=== PATIENT | female | born 1975 | race Caucasian/White ===

== ENCOUNTER 2016-12-31 09:02 | Inpatient (IN) | payer OTHER ==
[2016-12-31 09:52] LABS: BASO % 0.1 % (0.0-2.0); HEMATOCRIT 39.1 % (34.0-47.0); LYMPH # 1.2 K/uL (1.0-4.3); LYMPH % 8.6 % (20.0-40.0); MEAN CELL VOLUME 79.1 fL (81.0-99.0); MEAN CORPUSCULAR HEMOGLOBIN 25.2 pg (27.0-31.0); MEAN CORPUSCULAR HGB CONC 31.8 g/dL (33.0-37.0); MEAN PLATELET VOLUME 8.7 fL (7.2-11.7); MONO # 0.5 K/uL (0.0-0.8); MONO % 3.5 % (0.0-10.0); PLATELET COUNT 247 K/uL (130-400); RED CELL DISTRIBUTION WIDTH 15.2 % (11.5-14.5); WHITE BLOOD COUNT 14.1 K/uL (4.8-10.8)
[2016-12-31 09:56] LABS: ALB/GLOB RATIO 1.3 (1.0-2.1); ALKALINE PHOSPHATASE 70 U/L (38-126); ALT/SGPT 21 U/L (9-52); AST/SGOT 18 U/L (14-36); BILIRUBIN,TOTAL 0.6 mg/dL (0.2-1.3); BLOOD UREA NITROGEN 13 mg/dL (7-17); CALCIUM 8.6 mg/dl (8.6-10.4); CARBON DIOXIDE 24 mmol/L (22-30); CHLORIDE 104 mmol/L (98-107); GFR AFRICAN-AMERICAN > 60; GLUCOSE,RANDOM 121 mg/dL (65-105); POTASSIUM 3.5 mmol/L (3.6-5.2); SODIUM 137 mmol/L (132-148); TOTAL PROTEIN 7.6 g/dL (6.3-8.3)
[2016-12-31] MEDS ORDERED: Iohexol 240 (50 ml) PO STA (10:14)
[2016-12-31] MEDS ORDERED: Sodium Chloride 0.9% 1,000 ML IV ONE (10:15)
[2016-12-31] MEDS ORDERED: Sodium Chloride 0.9% 1,000 ML ONE (10:22)
[2016-12-31 10:38] LABS: NEUTROPHIL 83 % (50-75); REACTIVE LYMPHOCYTES 3 % (0-0); TOTAL CELLS COUNTED 100
[2016-12-31] MEDS ORDERED: Iohexol 300 100 ML IJ ONE (10:44)
--- NOTE | 2016-12-31 11:09 | C.PDOC ---
History Of Present Illness 41-year-old female, presents to the emergency department with complaints of left sided abdominal pain, that started yesterday. Pain is associated with nausea. Patient states pain radiates to back. Denies any vomiting, fevers, chills, chest pain, shortness of breath, symptoms, change in bowel habits, or any other associated symptoms. No other complaints at this time. Time Seen by Provider: 12/31/16 09:25 Chief Complaint (Nursing): Abdominal Pain History Per: Patient, Family History/Exam Limitations: no limitations Onset/Duration Of Symptoms: Days Current Symptoms Are (Timing): Still Present Severity: Moderate Past Medical History Reviewed: Historical Data, Nursing Documentation, Vital Signs Vital Signs: Last Vital Signs Temp 98.2 F 12/31/16 09:05 Pulse 82 12/31/16 09:05 Resp 16 12/31/16 09:05 BP 116/74 12/31/16 09:05 Pulse Ox 97 12/31/16 09:05 Family History: States: No Known Family Hx - Social History Hx Alcohol Use: No Hx Substance Use: No Review Of Systems Except As Marked, All Systems Reviewed And Found Negative. Constitutional: Negative for: Fever Cardiovascular: Negative for: Chest Pain, Palpitations Gastrointestinal: Positive for: Nausea, Abdominal Pain. Negative for: Vomiting Genitourinary: Negative for: Dysuria, Frequency, Vaginal Discharge, Vaginal Bleeding Musculoskeletal: Negative for: Back Pain Physical Exam - Physical Exam Appears: Non-toxic, No Acute Distress Skin: Warm, Dry, No Rash Nose: Normal Oral Mucosa: Moist Lips: Normal Appearing Neck: Normal ROM Cardiovascular: Rhythm Regular, No Murmur Respiratory: Normal Breath Sounds, No Accessory Muscle Use Gastrointestinal/Abdominal: Soft, Tenderness (Mild to moderate inconsistent tenderness to right and left lower quadrants), No Guarding, No Rebound Extremity: Normal ROM Neurological/Psych: Oriented x3, Normal Speech ED Course And Treatment - Laboratory Results Result Diagrams: 12/31/16 09:36 12/31/16 09:36 O2 Sat by Pulse Oximetry: 97 Medical Decision Making Medical Decision Making: Plan: * CT Abd/Pel * Labs * IVFs, Morphine, Zofran, Toradol * UA * Reassess and Disposition Disposition - Disposition - Scribe Statement The provider has reviewed the documentation as recorded by the Scribe (Lupe Mayen) All medical record entries made by the Scribe were at my direction and personally dictated by me. I have reviewed the chart and agree that the record accurately reflects my personal performance of the history, physical exam, medical decision making, and the department course for this patient. I have also personally directed, reviewed, and agree with the discharge instructions and disposition.
[2016-12-31] MEDS ORDERED: Iohexol 240 (50 ml) ONE (11:14)
[2016-12-31 11:15] LABS: RBC URINE < 1 /hpf (0-3); URINE BILIRUBIN NEGATIVE (NEGATIVE); URINE BLOOD NEGATIVE (NEGATIVE); URINE COLOR Yellow (YELLOW); URINE GLUCOSE (UA) NORMAL (Normal); URINE KETONE TRACE mg/dL (NEGATIVE); URINE LEUKOCYTE ESTERASE NEG Leu/uL (Negative); URINE PROTEIN NEGATIVE (NEGATIVE); URINE UROBILINOGEN NORMAL mg/dL (0.2-1.0); WBC URINE < 1 /hpf (0-5)
[2016-12-31] MEDS ORDERED: Morphine 4 MG/ML VIAL ONE (11:15)
--- NOTE | 2016-12-31 11:19 | C.PDOC ---
History Of Present Illness 41-year-old female, presents to the emergency department with complaints of right sided abdominal pain, that started yesterday. Pain is associated with nausea. Patient states pain radiates to back. Denies any vomiting, fevers, chills, chest pain, shortness of breath, symptoms, change in bowel habits, or any other associated symptoms. No other complaints at this time. Time Seen by Provider: 12/31/16 09:25 Chief Complaint (Nursing): Abdominal Pain History Per: Patient History/Exam Limitations: no limitations Onset/Duration Of Symptoms: Hrs Past Medical History Reviewed: Historical Data, Nursing Documentation, Vital Signs Vital Signs: Last Vital Signs Temp 97.9 F 12/31/16 16:17 Pulse 78 12/31/16 16:17 Resp 18 12/31/16 16:17 BP 110/78 12/31/16 16:17 Pulse Ox 97 12/31/16 16:18 Family History: States: No Known Family Hx - Social History Hx Alcohol Use: No Hx Substance Use: No Review Of Systems Except As Marked, All Systems Reviewed And Found Negative. Constitutional: Negative for: Fever, Chills Cardiovascular: Negative for: Chest Pain Respiratory: Negative for: Shortness of Breath Gastrointestinal: Positive for: Nausea, Abdominal Pain. Negative for: Vomiting Musculoskeletal: Negative for: Back Pain Neurological: Negative for: Weakness, Numbness, Headache, Dizziness Physical Exam - Physical Exam Appears: Non-toxic, No Acute Distress Skin: Warm, Dry, No Rash Head: Atraumatic, Normacephalic Eye(s): bilateral: Normal Inspection, PERRL Nose: Normal Oral Mucosa: Moist Lips: Normal Appearing Neck: Normal ROM Chest: Symmetrical Cardiovascular: Rhythm Regular, No Murmur Respiratory: Normal Breath Sounds, No Accessory Muscle Use Gastrointestinal/Abdominal: Soft, Tenderness (Mild to moderate inconsistent tenderness to right and left lower quadrants), No Guarding, No Rebound Extremity: Normal ROM Neurological/Psych: Oriented x3, Normal Speech ED Course And Treatment - Laboratory Results Result Diagrams: 12/31/16 09:36 12/31/16 09:36 O2 Sat by Pulse Oximetry: 97 - CT Scan/US CT Abd/Pel Other Rad Studies (CT/US): Read By Radiologist, Radiology Report Reviewed CT/US Interpretation: Accession No. : [id number]. Patient Name / ID : ANTONINO [id number]. Exam Date : 12/31/2016 13:13:05 ( Approved ). Study Comment : Sex / Age : F / 41Y. Creator : Manpreet Gloria MD. Dictator : Registry Np : Supervisor Title : Manpreet Gloria MD. Approver2 : Report Date : 12/31/2016 14:40:46. My Comment : . PROCEDURE: CT abdomen and pelvis dated 12/31/16. HISTORY: Right lower quadrant abdominal pain. COMPARISON: No prior study available comparison. TECHNIQUE: Contiguous axial images of the abdomen and pelvis performed following oral and intravenous injection of approximately 100 cc Omnipaque 300 contrast. Coronal and Sagittal reformats generated. Radiation dose: Total exam DLP = 510.84 mGy-cm. This CT exam was performed using one or more of the following dose reduction techniques : Automated exposure control, adjustment of the mA and/or kV according to patient size, and/or use of iterative reconstruction technique. FINDINGS: LOWER THORAX: Mild passive/dependent atelectasis both lung bases. . Minor chronic scarring changes within the middle lobe and lingular regions also felt be present. No evidence of effusion or basilar pneumothorax. . LIVER: Liver is upper limits of normal measuring approximately 18 cm in CC dimension. There is a large (approximately 7.16cm cc x 6.0cm ap x 3.4 cm t elliptical shaped area of low attenuation within the posterior inferior margin of right lobe of liver with peripheral areas of enhancement on most likely representing a hemangioma. Follow-up triple phase CT scan of the liver could be performed to confirm. . Mild diffuse fatty hepatic infiltration. Portal and splenic veins are opacified. GALLBLADDER AND BILE DUCTS: The gallbladder is physiologically distended. No evidence of intraluminal gallbladder calculi. Previous. PANCREAS : Unremarkable. No mass. No ductal dilatation. SPLEEN: Unremarkable. No splenomegaly. ADRENALS: Unremarkable. KIDNEYS AND URETERS: Unremarkable. No stone or hydronephrosis. BLADDER: Urinary bladder is markedly distended. No evidence of intraluminal urinary bladder calculi. REPRODUCTIVE: There may be a few tiny cervical nabothian cysts. Probable septated left adnexal cyst measuring approximately 2.4 x 1.8 cm. . . There appears to be several small follicular cysts right ovary. . Few tiny cervical nabothian cysts not excluded. APPENDIX: The appendix is dilated at and exhibits thick-walled appearance with surrounding infiltration of. Findings are consistent with acute appendicitis. BOWEL: Evaluation of the bowel is somewhat limited due to incomplete opacification. The stomach is incompletely distended which presumably accounts for slight thick-walled appearance. . Visualized loops of small bowel exhibit normal contour and caliber. No evidence acute mechanical bowel obstruction high doses. PERITONEUM: Unremarkable. No fluid collection. No free air. Small fat containing umbilical hernia. LYMPH NODES: Unremarkable. No enlarged lymph nodes. VASCULATURE: Unremarkable. No aortic aneurysm. BONES: No fracture or destructive lesion. OTHER FINDINGS: None. IMPRESSION: Findings consistent with acute appendicitis. Probable large hemangioma inferolateral and posterior aspect right lobe liver. Followup nonemergent triple phase CT scan of the liver could be performed confirm. Mild fatty hepatic infiltration. Apparent septated left adnexal cyst. Questionable few small cervical nabothian cysts. Findings discussed with emergency room JENNIFER Hendrix at approximately 2:30 p.m. with written down and read back verification. Medical Decision Making Medical Decision Making: Plan: * CT Abd/Pel * Labs * IVFs, Morphine, Zofran, Toradol * UA * Reassess and Disposition The case was discussed with Dr. Butcher who agrees to admit the patient. Patient placed NPO Disposition - Disposition Disposition: HOSPITALIZED Disposition Time: 15:00 Condition: STABLE - Clinical Impression Clinical Impression: Acute appendicitis - Scribe Statement The provider has reviewed the documentation as recorded by the Scribe (Lupe Mayen) All medical record entries made by the Scribe were at my direction and personally dictated by me. I have reviewed the chart and agree that the record accurately reflects my personal performance of the history, physical exam, medical decision making, and the department course for this patient. I have also personally directed, reviewed, and agree with the discharge instructions and disposition.
--- NOTE | 2016-12-31 14:42 | CT ---
PROCEDURE: CT abdomen and pelvis dated 12/31/16 HISTORY: Right lower quadrant abdominal pain. COMPARISON: No prior study available comparison TECHNIQUE: Contiguous axial images of the abdomen and pelvis performed following oral and intravenous injection of approximately 100 cc Omnipaque 300 contrast. Coronal and Sagittal reformats generated. Radiation dose: Total exam DLP = 510.84 mGy-cm. This CT exam was performed using one or more of the following dose reduction techniques: Automated exposure control, adjustment of the mA and/or kV according to patient size, and/or use of iterative reconstruction technique. FINDINGS: LOWER THORAX: Mild passive/dependent atelectasis both lung bases. . Minor chronic scarring changes within the middle lobe and lingular regions also felt be present. No evidence of effusion or basilar pneumothorax. . LIVER: Liver is upper limits of normal measuring approximately 18 cm in CC dimension. There is a large (approximately 7.16cm cc x 6.0cm ap x 3.4 cm t elliptical shaped area of low attenuation within the posterior inferior margin of right lobe of liver with peripheral areas of enhancement on most likely representing a hemangioma. Follow-up triple phase CT scan of the liver could be performed to confirm. . Mild diffuse fatty hepatic infiltration. Portal and splenic veins are opacified. GALLBLADDER AND BILE DUCTS: The gallbladder is physiologically distended. No evidence of intraluminal gallbladder calculi. Previous PANCREAS: Unremarkable. No mass. No ductal dilatation. SPLEEN: Unremarkable. No splenomegaly. ADRENALS: Unremarkable. KIDNEYS AND URETERS: Unremarkable. No stone or hydronephrosis. BLADDER: Urinary bladder is markedly distended. No evidence of intraluminal urinary bladder calculi. REPRODUCTIVE: There may be a few tiny cervical nabothian cysts. Probable septated left adnexal cyst measuring approximately 2.4 x 1.8 cm. . . There appears to be several small follicular cysts right ovary. . Few tiny cervical nabothian cysts not excluded. APPENDIX: The appendix is dilated at and exhibits thick-walled appearance with surrounding infiltration of. Findings are consistent with acute appendicitis. BOWEL: Evaluation of the bowel is somewhat limited due to incomplete opacification. The stomach is incompletely distended which presumably accounts for slight thick-walled appearance. . Visualized loops of small bowel exhibit normal contour and caliber. No evidence acute mechanical bowel obstruction high doses PERITONEUM: Unremarkable. No fluid collection. No free air. Small fat containing umbilical hernia. LYMPH NODES: Unremarkable. No enlarged lymph nodes. VASCULATURE: Unremarkable. No aortic aneurysm. BONES: No fracture or destructive lesion. OTHER FINDINGS: None. IMPRESSION: Findings consistent with acute appendicitis. Probable large hemangioma inferolateral and posterior aspect right lobe liver. Followup nonemergent triple phase CT scan of the liver could be performed confirm. Mild fatty hepatic infiltration. Apparent septated left adnexal cyst. Questionable few small cervical nabothian cysts. Findings discussed with emergency room JENNIFER Hendrix at approximately 2:30 p.m. with written down and read back verification.
--- NOTE | 2016-12-31 16:38 | CP.PCM.HP ---
History of Present Illness - History of Present Illness History of Present Illness: H&P Surgery- Dr. Butcher 41F w/ no relevant pmhx presented to the ED w/ sharp non-radiating RLQ pain that started yesterday. Pt had associated non-bloody, non-bilious vomiting x3. pain has progressively gotten worse. No previous episodes similar to this. Currently denies fevers, chills, chest pain, shortness of breath, diarrhea, change iin vision, numbness and tingling in extremities FDLMP: 12/24/16 PMH: none PSH: x2 ALL: NKDA Socialhx: denies etoh, tobacco, recreational drug use Present on Admission - Present on Admission Any Indicators Present on Admission: No Review of Systems - Review of Systems All systems: reviewed and no additional remarkable complaints except - Constitutional Constitutional: As Per HPI Past Patient History - Past Social History Smoking Status: Never Smoked - PSYCHIATRIC Hx Substance Use: No - SURGICAL HISTORY Hx Section: Yes Meds Allergies/Adverse Reactions: Allergies Allergy/AdvReac Type Severity Reaction Status Date / Time No Known Allergies Allergy Unverified 12/31/16 09:05 Physical Exam - Constitutional Appears: Non-toxic, No Acute Distress - Head Exam Head Exam: ATRAUMATIC - Eye Exam Eye Exam: EOMI. absent: Scleral icterus - ENT Exam ENT Exam: Mucous Membranes Moist - Respiratory Exam Respiratory Exam: NORMAL BREATHING PATTERN. absent: Accessory Muscle Use, Respiratory Distress - Cardiovascular Exam Cardiovascular Exam: +S1, +S2. absent: Bradycardia, Tachycardia - GI/Abdominal Exam GI & Abdominal Exam: Guarding, Tenderness. absent: Distended, Firm, Rigid, Soft Additional comments: tenderness in RLQ, - rovsings, voluntary guarding - Extremities Exam Extremities exam: Positive for: normal inspection. Negative for: calf tenderness - Back Exam Back exam: absent: CVA tenderness (L), CVA tenderness (R) - Neurological Exam Neurological exam: Alert, Oriented x3 - Psychiatric Exam Psychiatric exam: Normal Affect - Skin Skin Exam: Dry, Intact Results - Vital Signs Recent Vital Signs: Last Vital Signs Temp 97.9 F 12/31/16 16:17 Pulse 78 12/31/16 16:17 Resp 18 12/31/16 16:17 BP 110/78 12/31/16 16:17 Pulse Ox 97 12/31/16 16:30 - Labs Result Diagrams: 12/31/16 09:36 12/31/16 09:36 Labs: Laboratory Results - last 24 hr 12/31/16 12/31/16 12/31/16 09:36 09:36 10:59 WBC 14.1 H RBC 4.94 Hgb 12.4 Hct 39.1 MCV 79.1 L MCH 25.2 L MCHC 31.8 L RDW 15.2 H Plt Count 247 MPV 8.7 Neut % (Auto) 87.8 H Lymph % (Auto) 8.6 L Hettinger % (Auto) 3.5 Eos % (Auto) 0.0 Baso % (Auto) 0.1 Neut # 12.3 H Lymph # 1.2 [place] # 0.5 Eos # 0.0 Baso # 0.0 Neutrophils % (Manual) 83 H Lymphocytes % (Manual) 8 L Reactive Lymphs % 3 H Monocytes % (Manual) 6 Platelet Estimate Normal Poikilocytosis (manual Slight Anisocytosis (manual) Slight Ovalocytes Slight Sodium 137 Potassium 3.5 L Chloride 104 Carbon Dioxide 24 Anion Gap 13 BUN 13 Creatinine 0.6 L Est GFR ( Amer) > 60 Est GFR (Non-Af Amer) > 60 Random Glucose 121 H Calcium 8.6 Total Bilirubin 0.6 AST 18 ALT 21 Alkaline Phosphatase 70 Total Protein 7.6 Albumin 4.4 Globulin 3.2 Albumin/Globulin Ratio 1.3 Lipase 109 Urine Color Yellow Urine Clarity Clear Urine pH 7.0 Ur Specific [place] 1.024 Urine Protein Negative Urine Glucose (UA) Normal Urine Ketones Trace Urine Blood Negative Urine Nitrate Negative Urine Bilirubin Negative Urine Urobilinogen Normal Ur Leukocyte Esterase Neg Urine WBC (Auto) < 1 Urine RBC (Auto) < 1 Ur Squamous Epith Cells 1 Urine HCG, Qual Negative Assessment & Plan - Assessment and Plan (Free Text) Assessment: 41F w/ acute appendicitis Plan: - NPO - IVF/Abx - GI/DVT ppx - Plan for OR today - d/w Dr. Butcher Surgical attending Luis Schulz PGY1
[2016-12-31] MEDS ORDERED: HYDROmorphone 0.5 mg/0.5 ml ISec IVP PRN ×2 (16:45→18:27)
[2016-12-31] MEDS ORDERED: Piperacillin/Tazobact 3.375 GM in Sodium Chloride 100 ML IVPB SCH (16:45)
[2016-12-31] MEDS ORDERED: Lactated Ringer's 1,000 ML IV SCH (16:45)
[2016-12-31] MEDS ORDERED: Propofol 10 mg/ml Inj (20 ML) ONE (17:08)
[2016-12-31] MEDS ORDERED: Succinylcholine Chloride 20 mg/ml Syr (5 ml) IV ONE (17:08)
[2016-12-31] MEDS ORDERED: Rocuronium 10 mg/ml (5 ml) ONE (17:12)
[2016-12-31] MEDS ORDERED: Lactated Ringer's 1,000 ML IV ONE ×2 (17:25→20:10)
[2016-12-31] MEDS ORDERED: Piperacillin/Tazobact 3.375 gm 100 ML IVPB ONE (17:38)
[2016-12-31] MEDS ORDERED: Neostigmine Methylsulfate 3mg/3ml Syringe IV ONE (18:05)
--- NOTE | 2016-12-31 18:26 | PCM.SURG1 ---
Surgeon's Initial Post Op Note - Surgeon's Notes Surgeon: Dr. Butcher Vice President Of Product Marketing: PGY1 Type of Anesthesia: General Endo Pre-Operative Diagnosis: Acute Appendicitis Operative Findings: see op note Post-Operative Diagnosis: as above Operation Performed: laparoscopic appendectomy lysis of adhesion Specimen/Specimens Removed: appendix Estimated Blood Loss: EBL {In ML}: 10 Drains Used: No Drains Post-Op Condition: Good Date of Surgery/Procedure: 12/31/16 Time of Surgery/Procedure: 17:30
[2016-12-31 22:03] VITALS: RESP 20
[2016-12-31] MEDS: Piperacill/Tazo 3.375gm in Dex 3.375 GM/50 ML BAG IVPB SCH (22:28)
[2017-01-01] MEDS: Piperacill/Tazo 3.375gm in Dex 3.375 GM/50 ML BAG IVPB SCH ×2 (04:32→09:50)
[2017-01-01 06:17] LABS: MEAN CELL VOLUME 78.8 fL (81.0-99.0); MEAN CORPUSCULAR HEMOGLOBIN 25.7 pg (27.0-31.0); MEAN CORPUSCULAR HGB CONC 32.6 g/dL (33.0-37.0); MEAN PLATELET VOLUME 8.3 fL (7.2-11.7); RED CELL DISTRIBUTION WIDTH 15.3 % (11.5-14.5); WHITE BLOOD COUNT 7.4 K/uL (4.8-10.8)
[2017-01-01 08:42] LABS: BLOOD UREA NITROGEN 6 mg/dL (7-17); CALCIUM 7.8 mg/dl (8.6-10.4); CARBON DIOXIDE 26 mmol/L (22-30); CHLORIDE 105 mmol/L (98-107); GFR AFRICAN-AMERICAN > 60; GLUCOSE,RANDOM 87 mg/dL (65-105); POTASSIUM 3.3 mmol/L (3.6-5.2); SODIUM 136 mmol/L (132-148)
[2017-01-01 09:30] VITALS: TEMP 98.6
[2017-01-01] MEDS ORDERED: Potassium Chloride 20 mEq ER Tab PO ONE (11:48)
--- NOTE | 2017-01-01 11:48 | CP.PCM.DIS ---
Provider - Provider Date of Admission: 12/31/16 15:40 Attending physician: Robe Butcher MD Time Spent in preparation of Discharge (in minutes): 45 Diagnosis - Discharge Diagnosis (1) Acute appendicitis Status: Acute Comment: s/p laparoscopic appendectomy Hospital Course - Lab Results Lab Results: Most Recent Lab Values WBC 7.4 K/uL (4.8-10.8) 01/01/17 06:06 RBC 4.06 Mil/uL (3.80-5.20) 01/01/17 06:06 Hgb 10.4 g/dL (11.0-16.0) L D 01/01/17 06:06 Hct 32.0 % (34.0-47.0) L 01/01/17 06:06 MCV 78.8 fL (81.0-99.0) L 01/01/17 06:06 MCH 25.7 pg (27.0-31.0) L 01/01/17 06:06 MCHC 32.6 g/dL (33.0-37.0) L 01/01/17 06:06 RDW 15.3 % (11.5-14.5) H 01/01/17 06:06 Plt Count 196 K/uL (130-400) 01/01/17 06:06 MPV 8.3 fL (7.2-11.7) 01/01/17 06:06 Neut % (Auto) 87.8 % (50.0-75.0) H 12/31/16 09:36 Lymph % (Auto) 8.6 % (20.0-40.0) L 12/31/16 09:36 Meagher % (Auto) 3.5 % (0.0-10.0) 12/31/16 09:36 Eos % (Auto) 0.0 % (0.0-4.0) 12/31/16 09:36 Baso % (Auto) 0.1 % (0.0-2.0) 12/31/16 09:36 Neut # 12.3 K/uL (1.8-7.0) H 12/31/16 09:36 Lymph # 1.2 K/uL (1.0-4.3) 12/31/16 09:36 Meagher # 0.5 K/uL (0.0-0.8) 12/31/16 09:36 Eos # 0.0 K/uL (0.0-0.7) 12/31/16 09:36 Baso # 0.0 K/uL (0.0-0.2) 12/31/16 09:36 Neutrophils % (Manual) 83 % (50-75) H 12/31/16 09:36 Lymphocytes % (Manual) 8 % (20-40) L 12/31/16 09:36 Reactive Lymphs % 3 % (0-0) H 12/31/16 09:36 Monocytes % (Manual) 6 % (0-10) 12/31/16 09:36 Platelet Estimate Normal (NORMAL) 12/31/16 09:36 Poikilocytosis (manual Slight 12/31/16 09:36 Anisocytosis (manual) Slight 12/31/16 09:36 Ovalocytes Slight 12/31/16 09:36 Sodium 136 mmol/L (132-148) 01/01/17 06:06 Potassium 3.3 mmol/L (3.6-5.2) L 01/01/17 06:06 Chloride 105 mmol/L (98-107) 01/01/17 06:06 Carbon Dioxide 26 mmol/L (22-30) 01/01/17 06:06 Anion Gap 8 (10-20) L 01/01/17 06:06 BUN 6 mg/dL (7-17) L 01/01/17 06:06 Creatinine 0.7 mg/dL (0.7-1.2) 01/01/17 06:06 Est GFR ( Amer) > 60 01/01/17 06:06 Est GFR (Non-Af Amer) > 60 01/01/17 06:06 POC Glucose (mg/dL) 98 mg/dL (65-110) 01/01/17 06:50 Random Glucose 87 mg/dL (65-105) 01/01/17 06:06 Calcium 7.8 mg/dl (8.6-10.4) L 01/01/17 06:06 Total Bilirubin 0.6 mg/dL (0.2-1.3) 12/31/16 09:36 AST 18 U/L (14-36) 12/31/16 09:36 ALT 21 U/L (9-52) 12/31/16 09:36 Alkaline Phosphatase 70 U/L (38-126) 12/31/16 09:36 Total Protein 7.6 g/dL (6.3-8.3) 12/31/16 09:36 Albumin 4.4 g/dL (3.5-5.0) 12/31/16 09:36 Globulin 3.2 gm/dL (2.2-3.9) 12/31/16 09:36 Albumin/Globulin Ratio 1.3 (1.0-2.1) 12/31/16 09:36 Lipase 109 U/L (23-300) 12/31/16 09:36 Urine Color Yellow (YELLOW) 12/31/16 10:59 Urine Clarity Clear (Clear) 12/31/16 10:59 Urine pH 7.0 (5.0-8.0) 12/31/16 10:59 Ur Specific [place] 1.024 (1.003-1.030) 12/31/16 10:59 Urine Protein Negative mg/dL (NEGATIVE) 12/31/16 10:59 Urine Glucose (UA) Normal mg/dL (Normal) 12/31/16 10:59 Urine Ketones Trace mg/dL (NEGATIVE) 12/31/16 10:59 Urine Blood Negative (NEGATIVE) 12/31/16 10:59 Urine Nitrate Negative (NEGATIVE) 12/31/16 10:59 Urine Bilirubin Negative (NEGATIVE) 12/31/16 10:59 Urine Urobilinogen Normal mg/dL (0.2-1.0) 12/31/16 10:59 Ur Leukocyte Esterase Neg Jayshree/uL (Negative) 12/31/16 10:59 Urine WBC (Auto) < 1 /hpf (0-5) 12/31/16 10:59 Urine RBC (Auto) < 1 /hpf (0-3) 12/31/16 10:59 Ur Squamous Epith Cells 1 /hpf (0-5) 12/31/16 10:59 Urine HCG, Qual Negative (NEGATIVE) 12/31/16 10:59 - Hospital Course Hospital Course: 41F with no pmh presented to the ED with sharp, non-radiating RLQ pain for 1 day. Patient had associated 3 episodes of non-bloody, non-bilious vomiting. She states pain has progressively gotten worse. reports to never have experienced this pain in the past. Currently denies fevers, chills, chest pain, shortness of breath, diarrhea. Patient went for laparoscopic appendectomy. Patient tolerated procedure well. She was started on regular diet immediate following. The next morning, patient tolerating diet and ambulating without difficulty. At that time, patient was deemed medically stable for discharge to home. Follow up within 1-[address] Butcher. Discharge Exam - Head Exam Head Exam: ATRAUMATIC, NORMOCEPHALIC - Eye Exam Eye Exam: EOMI, Normal appearance - ENT Exam ENT Exam: Mucous Membranes Moist - Respiratory Exam Respiratory Exam: NORMAL BREATHING PATTERN - Cardiovascular Exam Cardiovascular Exam: REGULAR RHYTHM - GI/Abdominal Exam GI & Abdominal Exam: Soft. absent: Distended, Firm, Guarding, Rebound, Rigid, Tenderness - Extremities Exam Extremities exam: normal capillary refill, pedal pulses present - Back Exam Back exam: absent: CVA tenderness (L), CVA tenderness (R) - Neurological Exam Neurological exam: Alert, Oriented x3 - Psychiatric Exam Psychiatric exam: Normal Affect, Normal Mood - Skin Skin Exam: Dry, Intact, Normal Color, Warm Discharge Plan - Follow Up Plan Condition: GOOD Disposition: HOME/ ROUTINE Additional Instructions: Follow up with Dr. Butcher within 1-2 weeks May shower Dressings can be taken over tomorrow, steri-strips underneath will fall off on their own Refrain from heavy lifting for several weeks Call Dr. Butcher's office for ay issues
[2017-01-01 12:15] VITALS: BP 104/68; PULSE 69; O2SAT 100
--- NOTE | 2017-01-01 20:29 | OP ---
PROCEDURE DATE: 12/31/2016 SURGEON: Robe Butcher MD FISH DRIER: Dr. Schulz. ANESTHESIA: General. ANESTHESIOLOGIST: Luis Madrigal DO PREOPERATIVE DIAGNOSIS: Acute appendicitis. POSTOPERATIVE DIAGNOSIS: Acute appendicitis. PROCEDURE: Laparoscopic appendectomy. DESCRIPTION OF OPERATION: With the patient in the supine position under adequate general anesthesia, the abdomen was prepped and draped in usual sterile manner. Veress needle puncture was performed at the umbilicus with insufflation to 15 cm of water pressure of CO2 and a 10-mm laparoscopic trocar was inserted via an infraumbilical incision. Under direct vision, 5 and 12-mm trocars were inserted in the left lower quadrant. The patient was noted to have dense adherence of the uterus to the anterior abdominal wall in the region of her for previous section, and a single omental adhesion also to the anterior abdominal wall which was sharply lysed. The uterus was left undisturbed. The appendix was identified laying along the right pelvic sidewall and it was freed up and delivered into view. The medial appendix was divided using the LigaSure, and the appendix itself was divided with an Endo SIGIFREDO stapler. The area of the appendiceal artery was also reinforced with Hemoclips. The appendix was placed in a specimen retrieval bag and removed via the 12-mm port site. The right lower quadrant was irrigated and suctioned. The pneumoperitoneum was released and the trocars were removed. The umbilical and 12-mm port sites were closed with [id number] fascial sutures of 0-Vicryl. All incisions were closed with 4-0 Monocryl, subcuticular sutures, and Steri-Strips. Dry sterile dressings were applied. The patient tolerated the procedure well and transferred to the recovery room in stable condition. Estimated blood loss for the procedure was 10 mL. Robe Butcher MD
== END 2017-01-01 12:45 | disposition home or self-care (01) | DRG 883 ==
LOC: C.ER 09:02 → C.9E 15:40 → C.6T 20:35
PROVIDERS: ADMIT Specialist; ATTEND Specialist
PROC: 0DTJ4ZZ Resection of Appendix, Percutaneous Endoscopic Approach (ICD-10-PCS; principal; 2016-12-31 17:00)
DX: K35.80 Unspecified acute appendicitis (principal)